=== PATIENT | male | born 1955 | race Caucasian/White ===

== ENCOUNTER 2017-04-27 10:15 | Emergency (ER) | payer OTHER ==
--- NOTE | ~2017-04-27 | CR93 ---
[facility]. [facility] A Service of [facility] & [facility] RADIOLOGY TEXT RESULTS PATIENT: NIRAV MENDENHALL LOCATION: SED : 59 UNIT #: [id number] AGE: [address]: Eloy Hilliard MD SEX: M ORDER DR: [id number] [place] [id number] E MR#: [id number] Acc #: [id number] NAME: NIRAV MENDENHALL : 1955 SEX: M STUDY DATE/TIME: 04/27/2017 10:39 UNIT: SED ROOM: STUDY DESCRIPTION: CR Elbow Min 3 Views Lt Attending Physician: Eloy Hilliard M.D. Ordering Physician: Eloy Hilliard M.D. Primary Care Physician: Walt Kingston M.D. MEDICAL IMAGING REPORT This report is preliminary unless electronic signature is present. EXAM Left elbow, 3 views HISTORY Left elbow pain this morning with movement. COMPARISON STUDIES No comparisons. FINDINGS There is no joint effusion. There is no fracture or dislocation. IMPRESSION Negative. Dictated by... David Estrella M.D. THIS IS AN ELECTRONICALLY VERIFIED REPORT David Estrella M.D. at 04/29/2017 7:48 AM ARS/pcl TD: 04/27/2017 14:42 JOB #: [id number] MEDICAL IMAGING REPORT Page 1 of 1
[2017-04-27] MEDS ORDERED: AMLODIPINE-VAL1 EAC3 (10:22)
[2017-04-27] MEDS ORDERED: BYSTOLIC10 MG (10:22)
== END 2017-04-27 12:01 | disposition home or self-care (01) ==
LOC: SED 10:15
DX: S46.212A Strain of muscle, fascia and tendon of other parts of biceps, left arm, initial encounter (principal); I10 Essential (primary) hypertension; Z79.899 Other long term (current) drug therapy; Z88.0 Allergy status to penicillin; Z88.2 Allergy status to sulfonamides; X50.0XXA Overexertion from strenuous movement or load, initial encounter; Y92.009 Unspecified place in unspecified non-institutional (private) residence as the place of occurrence of the external cause
CPT/HCPCS: 73080; 99283